=== PATIENT | male | born 1940 | race Caucasian/White ===

== ENCOUNTER 2017-03-12 10:09 | Emergency (ER) | payer BC ==
[~2017-03-12] VITALS: Ht 188 cm; Wt 72.6 kg
[2017-03-12 11:06] LABS: HEMOGLOBIN 13.3 G/DL (12.5-16.6); MCH 32.1 PG (29.0-34.0); MCHC 33.3 G/DL (30.0-36.0); MCV 96.6 FL (86-99); PLATELET COUNT 168 K/uL (156-360); RBC DIS.WIDTH-CV 13.2 % (11.8-14.6); RBC DIS.WIDTH-SD 47.1 % (39-53); RED BLOOD COUNT 4.14 M/uL (4.00-5.50); WHITE BLOOD COUNT 3.7 K/uL (4.1-10.2)
[2017-03-12 11:18] LABS: CHLORIDE 103 mEq/L (99-109); POTASSIUM 3.6 mEq/L (3.7-5.4); SODIUM 141 mEq/L (136-147)
[2017-03-12 11:19] LABS: GLUCOSE 80 mg/dL (70-99)
[2017-03-12 11:23] LABS: CREATININE 1.1 mg/dL (0.6-1.3); GFR ESTIMATE (CALCULATED) > 59 mL/min/ (58.99-99999)
[2017-03-12 11:24] LABS: UREA NITROGEN (BUN) 23 mg/dL (9-23)
[2017-03-12 13:57] VITALS: BP 160/74
== END 2017-03-12 14:00 | disposition home or self-care (01) ==
LOC: EME 10:09
DX: R55 Syncope and collapse (principal); H35.30 Unspecified macular degeneration; Z87.891 Personal history of nicotine dependence
CPT/HCPCS: 71046; 80048; 85027; 93005; 99281; 99284